=== PATIENT | female | born 1990 | race Asian ===

== ENCOUNTER 2022-09-25 17:39 | Emergency (ER) | payer MEDICAID, SELFPAY ==
[2022-09-25 17:47] VITALS: BP 114/78; PULSE 97; RESP 16; TEMP 36.7; O2SAT 96; BMI 28.8
--- NOTE | 2022-09-25 17:57 | CRLHL7_ITS ---
For Patients: As a result of the Cures Act, medical imaging exams and procedure reports are released immediately into your electronic medical record. You may view this report before your referring provider. If you have questions, please contact your health care provider. Indication: Trauma, fall. Technique: Three views of the sacrum and coccyx. Comparison: None Findings/Impression: No acute fracture or dislocation. Normal alignment of the pubic symphysis. No sacral alar fracture. Dictated by Brenton Campos MD @ 09/25/2022 7:24:40 PM (Electronically Signed)
--- NOTE | 2022-09-25 18:22 | ED.GENADULT ---
HPI - General Adult General Chief complaint: Fall/Minor Trauma Stated complaint: Fell, [place] a snap in the tailbone region Time Seen by Provider: 09/25/22 17:41 Source: patient Mode of arrival: ambulatory Limitations: no limitations History of Present Illness HPI narrative: 31-year-old female coming in today complaining of pain in her tailbone. Patient states that several hours ago she was going down the stairs when she slipped and fell flat on her bottom then falling backwards and hitting her head on the stairs to. She had immediate pain in her tailbone. And the pain is has gotten worse as the days gone on. Her head feels okay, no significant headache. She denies any nausea or vomiting. No blurry vision or changes in her hearing. No ringing in her ears. She did not lose consciousness. She did not bite her tongue. She denies any neurologic deficits. No slurred speech or confusion. She states that it hurts to go from a transition of sitting to standing. It hurts to stay seated. Once she is standing that is when the pain is at its best. Related Data Home Medications Medication Instructions Recorded Confirmed No Known Home Medications 09/25/22 09/25/22 Allergies Allergy/AdvReac Type Severity Reaction Status Date / Time kiwi Allergy Severe Anaphylaxis Verified 09/25/22 17:46 Penicillins Allergy Mild Rash Verified 09/25/22 17:46 Review of Systems Status of ROS: Reports: 10 or more systems reviewed and unremarkable except as noted in History and below [facility] Social History Smoking Status: Current every day smoker What tobacco products do you use: cigarettes Smoking packs per day: 0.1 Smoking cigarettes per day: 2.0 Do you use any of these nicotine containing products: None How often do you have a drink containing alcohol: never AUDIT-C Alcohol total score: 0 Non-prescribed substance use: denies use service: No Exam Narrative: Exam Narrative: Well-nourished well-developed patient in no acute distress. Alert and oriented. Answers questions appropriately. Mood and affect are appropriate. Thoughts are goal oriented and rational. No tangential or magical thinking noted. Patient speaks in full sentences without needing to catch her breath. GCS is 15. HEENT: Normocephalic atraumatic. Pupils are equally round reactive to light. Extraocular muscles are intact. Conjunctivae are moist without any icterus noted. Moist mucous membranes. Scalp is without ecchymosis or hematoma noted. No crepitus or areas of tenderness. Cardiovascular is regular rate and rhythm. Lungs are clear to auscultation bilaterally. No pain with deep inspiration. Back: Normal appearance. She has no tenderness to palpation over the cervical thoracic or lumbar spine. She has acute tenderness with palpation of the coccyx. There is no swelling or ecchymosis noted in the area. Const: Vital Signs, click to edit/add: Vital Signs - 24 hr 09/25/22 17:47 Temperature 98.1 F Pulse Rate [Left P ulse Oximeter] 97 Respiratory Rate 16 Blood Pressure [Ri ght Upper Arm] 114/78 Pulse Oximetry 96 Oxygen Delivery Me thod Room Air Course Course Hospital Course: Coccygeal x-ray was done-no acute fractures identified. Vital Signs Vital signs: Initial Vital Signs Temperature 98.1 F 09/25/22 17:47 Temperature Source Temporal Artery Scan 09/25/22 17:47 Pulse Rate 97 09/25/22 17:47 Pulse Rhythm 09/25/22 17:47 Respiratory Rate 16 09/25/22 17:47 Blood Pressure 114/78 09/25/22 17:47 Blood Pressure Mean 90 09/25/22 17:47 Blood Pressure Position Sitting 09/25/22 17:47 Pulse Oximetry 96 09/25/22 17:47 Oxygen Delivery Method 09/25/22 17:47 Vital Signs Temperature 98.1 F 09/25/22 17:47 Pulse Rate 97 09/25/22 17:47 Respiratory Rate 16 09/25/22 17:47 Blood Pressure 114/78 09/25/22 17:47 Pulse Oximetry 96 09/25/22 17:47 Oxygen Delivery Method 09/25/22 17:47 Temperature 98.1 F 09/25/22 17:47 Pulse Rate 97 09/25/22 17:47 Respiratory Rate 16 09/25/22 17:47 Blood Pressure 114/78 09/25/22 17:47 Pulse Oximetry 96 09/25/22 17:47 Oxygen Delivery Method 09/25/22 17:47 Medical Decision Making MDM Narrative Medical decision making narrative: 31-year-old female contusion of the tailbone. Patient will be discharged home with tramadol. We discussed other symptomatic treatments including a donut pillow and NSAIDs. Patient was agreeable had no other questions. Imaging Data XR Coccyx: Attestation: I have reviewed the pertinent imaging results. Radiologist's impression: Trauma, fall. Technique: Three views of the sacrum and coccyx. Comparison: None Findings/Impression: No acute fracture or dislocation. Normal alignment of the pubic symphysis. No sacral alar fracture. Discharge Plan Discharge Clinical Impression: Coccygeal contusion Patient Disposition: Home, Self-Care Condition: Stable Additional Instructions: Okay to use ibuprofen or Tylenol as needed. Recommend ibuprofen 600-800 mg 3 times a day with meals. Okay to use tramadol as needed for pain as well. Recommend getting a donut pillow to sit on for the next several weeks. Tramadol prescription sent to [facility]. Prescriptions: No Action No Known Home Medications Stand Alone Forms: [employer] Info Instructions
== END 2022-09-25 19:45 | disposition home or self-care (01) ==
PROVIDERS: Emergency Provider Family Medicine
DX: S30.0XXA Contusion of lower back and pelvis, initial encounter (principal); W10.8XXA Fall (on) (from) other stairs and steps, initial encounter
CPT/HCPCS: 72220; 99283; 99284

== ENCOUNTER 2023-05-04 15:39 | Emergency (ER) | payer MEDICAID, SELFPAY ==
[2023-05-04 15:45] VITALS: BP 115/77; PULSE 90; RESP 16; TEMP 36.6; O2SAT 100; BMI 29.8
--- NOTE | 2023-05-04 16:06 | CRLHL7_ITS ---
For Patients: As a result of the Century Cures Act, medical imaging exams and procedure reports are released immediately into your electronic medical record. You may view this report before your referring provider. If you have questions, please contact your health care provider. INDICATION: Left flank pain COMPARISON: None. TECHNIQUE: CT of the abdomen and pelvis without intravenous contrast. Multiplanar axial, coronal, and sagittal reformats were reconstructed. Intravenous contrast: None. Oral contrast was not administered. FINDINGS: Lung bases: Normal. Liver: Normal size and non-contrast attenuation. Gallbladder and biliary tree: Normal gallbladder. No biliary duct dilation. Pancreas: Normal. Spleen: Normal size. Adrenal glands: Normal. No nodules. Kidneys and bladder: Normal size and position. No obvious cyst or mass. No calculi. No urinary tract dilation. The urinary bladder is normal. GI: Descending colon diverticulitis. Adjacent inflammatory change without perforation, phlegmon, or abscess. Very few diverticular burden. No dilated segments. No other abnormal bowel wall thickening. Small stool burden. The appendix is normal. Vessels: Normal caliber abdominal aorta with no calcified atherosclerotic plaques. Peritoneum: No free fluid. Lymph nodes: No adenopathy. Pelvis: Physiologic appearance of the reproductive organs. Bones: No fractures. No focal bone lesions. Normal for age. IMPRESSION: Acute uncomplicated diverticulitis. Please note that all CT scans at this facility use dose modulation, iterative reconstruction, and/or weight-based dosing when appropriate to reduce radiation dose to as low as reasonably achievable. Dictated by Ashlyn Nelson MD @ 05/04/2023 4:57:06 PM (Electronically Signed)
[2023-05-04 16:08] LABS: Appearance Urine Clear (Clear); Bilirubin Urine Negative (Negative); Blood Urine Negative (Negative); Color Urine Yellow (Yellow); Glucose Urine Negative (Negative); Ketones Urine Negative (Negative); Leukocyte Esterase Urine Negative (Negative); Nitrite Urine Negative (Negative); Protein Urine Negative (Negative); Urobilinogen Urine 0.2 (0.2-1.0)
--- NOTE | 2023-05-04 16:11 | ED.GENADULT ---
HPI - General Adult General Time Seen by Provider: 16:11 Date Seen: 05/04/23 Chief complaint: Abdominal Pain Stated complaint: stomach pain left side, rib pain Time Seen by Provider: 05/04/23 15:46 History of Present Illness HPI narrative: This is a pleasant 32-year-old female with a past medical history including exercise-induced asthma (rarely needs inhaler), tobacco use, who presents to the ER today with left upper quadrant/left-sided abdominal pain. She has been sick for 3 days. She developed symptoms of pain the common BD g gradually throughout the day on either Wednesday or Wednesday. Along with those symptoms, that today she developed diarrhea. She had multiple episodes of watery but nonbloody and non mucousy diarrhea. Her left-sided pain became more intense. Her diarrhea continued for a day or 2. She was nauseous but not vomiting. Today her stools are still soft but seemed to be normalizing. However son Wednesday she had on ongoing left-sided pain. She feels likes not really getting worse but is not getting better. She does not really know what triggered it. No clear exacerbating or alleviating factor. It does not really hurt to move or breathe. The pain is not radiate to her flank. No associated urinary symptoms. No pain rating down her leg. No right-sided abdominal pain. She did have a low-grade fever last night. She felt a bit dizzy yesterday when she was at the park with her children. Otherwise no syncope. No chest pain or rib pain. No history of DVT/PE. No swelling in her legs. She does not take any prescription medications Related Data Previous Rx's Medication Instructions Recorded ciprofloxacin HCl 500 mg tablet 500 mg PO BID 7 days #14 tabs 05/04/23 (Cipro) metronidazole 500 mg tablet 500 mg PO TID 7 days #21 tabs 05/04/23 Allergies Allergy/AdvReac Type Severity Reaction Status Date / Time kiwi Allergy Severe Anaphylaxis Verified 09/25/22 17:46 Penicillins Allergy Mild Rash Verified 09/25/22 17:46 lactose AdvReac Verified 05/04/23 15:48 PFSH PFS Social History Smoking Status: Current every day smoker What tobacco products do you use: cigarettes Smoking packs per day: 0.1 Smoking cigarettes per day: 2.0 Do you use any of these nicotine containing products: None How often do you have a drink containing alcohol: never AUDIT-C Alcohol total score: 0 Non-prescribed substance use: denies use service: No Exam Narrative: Exam Narrative: Constitutional: Appears well-developed and well-nourished. Alert. Conversant. Non toxic. HENT: Head: Atraumatic. Nose: Nose normal. Mouth/Throat: Oral mucosa is clear and moist. no trismus. Pharynx normal. Tonsils symmetric. No tonsillar enlargement, erythema, or exudate. Eyes: Conjunctivae normal. EOM normal. Pupils equal, round, and reactive to light. No scleral icterus. Neck: Normal range of motion. Neck supple. No tracheal deviation present. Cardiovascular: Normal rate, regular rhythm. No gallop. No friction rub. No murmur heard. Symmetric radial artery pulses Pulmonary/Chest: Effort normal. No stridor. No respiratory distress. No wheezes. No rales. No rhonchi . No ribcage tenderness. No shingles. No bruising. Abdominal: Soft. Bowel sounds normal. No distension. No mass. Left upper quadrant and>> left lower quadrant tenderness. No posterior CVA tenderness. No rebound. No guarding. Musculoskeletal: RUE: Normal range of motion. No tenderness. No deformity LUE: Normal range of motion. No tenderness. No deformity RLE: Normal range of motion. No edema. No tenderness. No deformity LLE: Normal range of motion. No edema. No tenderness. No deformity Neurological: Alert and oriented to person, place, and time. Normal strength. CN II-VII intact. No sensory deficit. GCS eye subscore is 4. GCS verbal subscore is 5. GCS motor subscore is 6. Normal coordination Skin: Skin is warm and dry. No rash noted. No pallor. Normal capillary refill. Psychiatric: Normal mood. Normal affect. Const: Vital Signs, click to edit/add: Vital Signs - 24 hr 05/04/23 15:45 Temperature 97.9 F Pulse Rate [Pulse Oximeter] 90 Respiratory Rate 16 Blood Pressure [Ri ght Upper Arm] 115/77 Pulse Oximetry 100 Oxygen Delivery Me thod Room Air Course Reevaluation(s) Reevaluation #1: Recheck-sitting up in bed. Feels comfortable going home. Had a detailed discussion about her labs and CT findings. Vital Signs Vital signs: Initial Vital Signs Temperature 97.9 F 05/04/23 15:45 Temperature Source Temporal Artery Scan 05/04/23 15:45 Pulse Rate 90 05/04/23 15:45 Respiratory Rate 16 05/04/23 15:45 Blood Pressure 115/77 05/04/23 15:45 Blood Pressure Mean 89 05/04/23 15:45 Blood Pressure Position Sitting 05/04/23 15:45 Pulse Oximetry 100 05/04/23 15:45 Oxygen Delivery Method Room Air 05/04/23 15:45 Vital Signs Temperature 97.9 F 05/04/23 15:45 Pulse Rate 90 05/04/23 15:45 Respiratory Rate 16 05/04/23 15:45 Blood Pressure 115/77 05/04/23 15:45 Pulse Oximetry 100 05/04/23 15:45 Oxygen Delivery Method Room Air 05/04/23 15:45 Temperature 97.9 F 05/04/23 15:45 Pulse Rate 90 05/04/23 15:45 Respiratory Rate 16 05/04/23 15:45 Blood Pressure 115/77 05/04/23 15:45 Pulse Oximetry 100 05/04/23 15:45 Oxygen Delivery Method Room Air 05/04/23 15:45 Medical Decision Making MDM Narrative Medical decision making narrative: Presented to the Emergency Department with left-sided and left upper quadrant abdominal pain. The differential diagnosis of abdominal pain includes: Appendicitis, Bowel Obstruction, Ulcer, Ischemia, Cholecystitis, Diverticulitis, Pancreatitis, UTI, kidney stone, Enteritis/Colitis, amongst many other etiologies. Not . Urinalysis normal. CT scan shows evidence for acute uncomplicated diverticulitis of affecting her descending colon. No evidence for perforation, abscess. The exact etiology of the abdominal pain is not clear at this time. No life threatening cause or need for emergent surgery or hospital admission is detected today. Discussed option managing her uncomplicated diverticulitis. We discussed supportive care without antibiotics verses prescribing antibiotics for this. Discussed recent recommendations for non antibiotic management and risks of antibiotics such as diarrhea. Discuss risk of potential development of surgical pathology. After detailed discussion, using shared decision-making, we decided to try to treat her supportively for now. She feels comfortable managing her pain with Tylenol/ibuprofen at home so will hold off on opiates. Will try to manage without antibiotics, as per current guidelines. I will give her prescription for Cipro/Flagyl that she can start if she is not improving after 48 hours. She has penicillin allergy which contraindicate Augmentin. Reviewed potential for worsening of her condition and precautions for immediate return to the ER. Also she will follow up for recheck if she is not completely improved within 4 days. Lab Data Labs: Lab Results 05/04/23 05/04/23 Range/Units 15:47 16:16 WBC 9.39 (4.50-11.00) K/uL RBC 4.25 (4.00-5.20) m/uL Hgb 13.0 (12.0-16.0) gm/dL Hct 39.8 (33.0-51.0) % MCV 94 (80-100) fL MCH 31 (26-34) pg MCHC 33 (32-36) gm/dL RDW Coeff of Jody 11.9 (11.5-15.5) % Plt Count 219 (140-440) K/uL Neut % (Auto) 68.1 (42.0-72.0) % Lymph % (Auto) 19.7 L (20-44) % [place] % (Auto) 7.9 (0.0-11.0) % Eos % (Auto) 3.6 (0.0-7.0) % Baso % (Auto) 0.5 (0.0-3.0) % Neut # (Auto) 6.39 (1.7-7.0) K/uL Lymph # (Auto) 1.80 (0.90-2.90) K/uL [place] # (Auto) 0.70 (0.00-0.90) K/UL Eos # (Auto) 0.34 (0.00-0.50) K/uL Baso # (Auto) 0.05 (0.00-0.30) K/uL Abs Immat Gran (auto) 0.02 (0.00-0.30) K/uL Imm/Tot Granulo (auto) 0.2 % Sodium 138 (135-149) mmol/L Potassium 3.7 (3.6-5.1) mmol/L Chloride 104 (96-114) mmol/L Carbon Dioxide 26 (20-32) mmol/L Anion Gap 8 (7-15) mEq/L BUN 11 (5-24) mg/dL Creatinine 0.6 (0.5-1.5) mg/dL Estimated Creat Clear 118.88 Estimated GFR 121 ml/min Glucose 83 (60-115) mg/dL Lactate 0.6 (0.5-1.9) mmol/L Calcium 8.6 (8.4-10.6) mg/dL Total Bilirubin 0.6 (0.1-1.5) mg/dL AST 24 (12-35) U/L ALT 20 (4-35) U/L Alkaline Phosphatase 65 (40-150) U/L Total Protein 7.3 (6.0-8.3) g/dL Albumin 4.1 (3.3-5.0) g/dL Lipase 114 (23-300) U/L Urine Color Yellow (Yellow) Urine Appearance Clear (Clear) Urine pH 6.0 (5.0-8.5) Ur Specific [place] 1.010 (1.000-1.030) Urine Protein Negative (Negative) Urine Glucose (UA) Negative (Negative) Urine Ketones Negative (Negative) Urine Blood Negative (Negative) Urine Nitrite Negative (Negative) Urine Bilirubin Negative (Negative) Urine Urobilinogen 0.2 (0.2-1.0) Ur Leukocyte Esterase Negative (Negative) Urine RBC 0-2 (0-2) Urine WBC 0-2 (0-5) Ur Squamous Epith Cells None (None-Few) Urine Bacteria None (None) Urine HCG, Qual Negative (Negative) Imaging Data CT scan - abdomen: Attestation: I have reviewed the pertinent imaging results. Radiologist's impression: IMPRESSION: Acute uncomplicated diverticulitis. Discharge Plan Discharge Clinical Impression: Diverticulitis Patient Disposition: Home, Self-Care Condition: Stable Instructions: Diverticulitis (DC) Additional Instructions: As we discussed, please come back to the ER right away if you have any worsening symptoms-such as worsening pain, developing fever, nausea vomiting, bloody stools or worsening diarrhea, weakness. Use Tylenol or ibuprofen for pain. Drink plenty of fluids and try to eat a regular healthy diet. Some cases of diverticulitis, especially those in young healthy people, will resolve without specific treatment. Current guidelines say that antibiotics are not always necessary for diverticulitis. However if you are not getting better within 2 days, please start on your antibiotics. Please start your antibiotics if you are not improving within 48 hours. After that, if you have not completely improved within 2 days of starting the antibiotics, come back to the ER or see your doctor for a recheck. Even if you get better, please call your regular doctor or the [facility] to arrange a recheck appointment for 1-2 weeks from now. Prescriptions: New ciprofloxacin HCl [Cipro] 500 mg tablet 500 mg PO BID 7 Days Qty: 14 0RF metronidazole 500 mg tablet 500 mg PO TID 7 Days Qty: 21 0RF Follow Up/Referrals: Provider,Not a Local [Referring] - Stand Alone Forms: [employer] Info Instructions
[2023-05-04 16:21] LABS: Lactate* 0.6 mmol/L (0.5-1.9)
[2023-05-04 16:29] LABS: RBC Urine 0-2 (0-2); WBC Urine 0-2 (0-5)
[2023-05-04 16:39] LABS: Albumin* 4.1 g/dL (3.3-5.0); Chloride* 104 mmol/L (96-114); Sodium* 138 mmol/L (135-149)
[2023-05-04 16:40] LABS: Potassium* 3.7 mmol/L (3.6-5.1)
[2023-05-04 16:42] LABS: Alanine Aminotransferase* 20 U/L (4-35); Alkaline Phosphatase* 65 U/L (40-150); Anion Gap 8 mEq/L (7-15); Aspartate Amino Transferase* 24 U/L (12-35); Bilirubin Total* 0.6 mg/dL (0.1-1.5); Blood Urea Nitrogen* 11 mg/dL (5-24); Carbon Dioxide* 26 mmol/L (20-32); Creatinine* 0.6 mg/dL (0.5-1.5); Est. Creatinine Clearance* 118.88; Estimated Glomerular Filt Rate 121 ml/min; Glucose* 83 mg/dL (60-115); Lipase* 114 U/L (23-300); Total Protein* 7.3 g/dL (6.0-8.3)
[2023-05-04 16:43] LABS: Calcium* 8.6 mg/dL (8.4-10.6)
[2023-05-04 16:53] LABS: Ur HCG Qualitative* Negative (Negative)
[2023-05-04 17:21] LABS: Basophils Absolute Auto 0.05 K/uL (0.00-0.30); Basophils Percent Auto 0.5 % (0.0-3.0); Eosinophils Absolute Auto 0.34 K/uL (0.00-0.50); Eosinophils Percent Auto 3.6 % (0.0-7.0); Hematocrit 39.8 % (33.0-51.0); Immature Granulocytes Abs Auto 0.02 K/uL (0.00-0.30); Immature Granulocytes Pct Auto 0.2 %; Lymphocytes Percent Auto 19.7 % (20-44); Mean Corpuscular HGB Conc 33 gm/dL (32-36); Mean Corpuscular Hemoglobin 31 pg (26-34); Mean Corpuscular Volume 94 fL (80-100); Monocytes Percent Auto 7.9 % (0.0-11.0); Neutrophils Absolute Auto 6.39 K/uL (1.7-7.0); Neutrophils Percent Auto 68.1 % (42.0-72.0); Platelet Count* 219 K/uL (140-440); RDW Coefficient of Variation % 11.9 % (11.5-15.5); Red Blood Count 4.25 m/uL (4.00-5.20); White Blood Count* 9.39 K/uL (4.50-11.00)
[2023-05-04 17:22] LABS: Slide Review Reflex No
[2023-05-04 18:04] VITALS: BP 122/81; PULSE 79; RESP 16; TEMP 36.8
== END 2023-05-04 18:04 | disposition home or self-care (01) ==
PROVIDERS: Emergency Provider Emergency Medicine; PCP Family Medicine
DX: K57.92 Diverticulitis of intestine, part unspecified, without perforation or abscess without bleeding (principal)
CPT/HCPCS: 36415; 74176; 80053; 81001; 81025; 83605; 83690; 85025; 99283; 99284

== ENCOUNTER 2023-05-27 20:16 | Emergency (ER) | payer MEDICAID, SELFPAY ==
[2023-05-27 20:20] VITALS: BP 101/65; PULSE 82; RESP 18; TEMP 36.8; O2SAT 99; BMI 29.8
--- NOTE | 2023-05-27 20:43 | ED.GENADULT ---
HPI - General Adult General Date Seen: 05/27/23 Chief complaint: Skin/Abscess/Foreign Body Stated complaint: bite on arm Time Seen by Provider: 05/27/23 20:33 Source: patient Mode of arrival: ambulatory Limitations: no limitations History of Present Illness HPI narrative: Patient is a 32-year-old woman who comes in with some swelling and a pustule on her left arm. She says about a week ago she thought she had a couple of bites there. She squeezed the area and now has some swelling and pain and a larger area. There is a small pustule which is not draining. She also notes that for quite a while she has had recurrent boils in her groin area, she has never been seen for it but wonders if it is related. Related Data Home Medications Medication Instructions Recorded Confirmed vit no.[id number] .ROUTE 05/27/23 Allergies Allergy/AdvReac Type Severity Reaction Status Date / Time kiwi Allergy Severe Anaphylaxis Verified 05/27/23 20:27 Penicillins Allergy Mild Rash Verified 05/27/23 20:27 Sulfa (Sulfonamide Allergy Unknown Verified 05/27/23 20:27 Antibiotics) lactose AdvReac Verified 05/27/23 20:27 Review of Systems Status of ROS: Reports: 6 or more systems reviewed and unremarkable except as noted in History and below [facility] Social History Smoking Status: Current every day smoker What tobacco products do you use: cigarettes Smoking packs per day: 0.1 Smoking cigarettes per day: 2.0 Years smoked: 15 Smoking pack-years: 1.50 Do you use any of these nicotine containing products: None Second hand tobacco smoke exposure: No How often do you have a drink containing alcohol: never AUDIT-C Alcohol total score: 0 Non-prescribed substance use: denies use service: No Exam Narrative: Exam Narrative: Vital signs reviewed In general, an alert, nontoxic woman. Skin: On the left forearm she has a tiny pustule, there is a small area of induration perhaps a cm to a cm and half but I do not feel anything fluctuant. There is mild erythema and swelling to about 6 cm surrounding this area. This is tender but also not fluctuant. No lymphangitic streaking. In the groin, she has several small boils, none that appear to require drainage. Const: Vital Signs, click to edit/add: Vital Signs - 24 hr 05/27/23 20:20 Temperature 98.2 F Pulse Rate [Pulse Oximeter] 82 Respiratory Rate 18 Blood Pressure [Ri ght Upper Arm] 101/65 Pulse Oximetry 99 Oxygen Delivery Me thod Room Air Documenting provider has reviewed patient's vital signs: yes Course Course ED Course: At this time I do not think that the arm needs incision and drainage, I do not feel anything suggestive of abscess. She does appear to have a cellulitis which I will treat with antibiotics, discussed with her that if she has worsening rather than improving she should be seen again to make sure she has not developed an abscess. With regard to the groin, this looks consistent likely with hidradenitis suppurativa. I have given her some information on this. Discuss further with primary care or Dermatology. Return for worsening swelling or pain. Vital Signs Vital signs: Initial Vital Signs Temperature 98.2 F 05/27/23 20:20 Temperature Source Temporal Artery Scan 05/27/23 20:20 Pulse Rate 82 05/27/23 20:20 Respiratory Rate 18 05/27/23 20:20 Blood Pressure 101/65 05/27/23 20:20 Blood Pressure Mean 77 05/27/23 20:20 Blood Pressure Position Sitting 05/27/23 20:20 Pulse Oximetry 99 05/27/23 20:20 Oxygen Delivery Method Room Air 05/27/23 20:20 Vital Signs Temperature 98.2 F 05/27/23 20:20 Pulse Rate 82 05/27/23 20:20 Respiratory Rate 18 05/27/23 20:20 Blood Pressure 101/65 05/27/23 20:20 Pulse Oximetry 99 05/27/23 20:20 Oxygen Delivery Method Room Air 05/27/23 20:20 Temperature 98.2 F 05/27/23 20:20 Pulse Rate 82 05/27/23 20:20 Respiratory Rate 18 05/27/23 20:20 Blood Pressure 101/65 05/27/23 20:20 Pulse Oximetry 99 05/27/23 20:20 Oxygen Delivery Method Room Air 05/27/23 20:20 Discharge Plan Discharge Clinical Impression: Cellulitis Patient Disposition: Home, Self-Care Condition: Stable Instructions: Cellulitis (ED), Hidradenitis Suppurativa (ED) Additional Instructions: Antibiotic as prescribed. Warm compresses. I would expect this to gradually improve over the next 48 hours. If it is getting worse you should be seen again to recheck and make sure there is nothing that needs to be drained. Prescriptions: No Action vit no.[id number] [Classic ] .ROUTE Follow Up/Referrals: Ana Guzman DO [Primary Care Provider] - Stand Alone Forms: [employer] Info Instructions
== END 2023-05-27 21:02 | disposition home or self-care (01) ==
LOC: ED 20:50
PROVIDERS: Emergency Provider Emergency Medicine; PCP Family Medicine
DX: L03.114 Cellulitis of left upper limb (principal)
CPT/HCPCS: 99283

== ENCOUNTER 2023-06-11 09:17 | Outpatient (CLI) | payer MEDICAID, SELFPAY ==
--- NOTE | 2023-06-11 09:15 | CRLHL7_ITS ---
For Patients: As a result of the Century Cures Act, medical imaging exams and procedure reports are released immediately into your electronic medical record. You may view this report before your referring provider. If you have questions, please contact your health care provider. Indication: DESIRE FOR Technique: Hysterosalpingogram. Fluoroscopic time 42 seconds. IMPRESSION: Normal patency of the fallopian tubes with spillage into the peritoneal cavity. No filling defect in the endometrial canal. Normal exam. Dictated by Ishaan Rosario MD @ 06/11/2023 10:49:29 AM (Electronically Signed)
--- NOTE | 2023-06-11 09:58 | P.GYNPRC_ITS ---
Procedure Note Date of procedure: 06/11/23 Pre-op diagnosis: Desire for Post-op diagnosis: same Procedure: Hysterosalpingogram Anesthesia: none Complications: None Surgeon: Taran Blair MD Estimated blood loss (mL): 5 Pathology: none sent Condition: stable Disposition: other (Discharge) Findings: Speculum exam: cervix w/o gross lesions or abnormal discharge. HSG: Normal uterine cavity, bilateral fallopian tubes and bilateral spillage of contrast. Procedure Description: PROCEDURE: After obtaining verbal consent, the patient was placed in the dorsal lithotomy position on the x-ray table. An open-sided bivalve speculum was introduced into the vagina and the cervix easily visualized. The cervix and vagina were then prepped with Betadine. The anterior lip of the cervix was grasped with a single-tooth tenaculum for traction. A balloon tipped double- lumen catheter was then gently inserted through the cervical opening into the uterine cavity to the level of the fundus. The balloon was insufflated with 3 mL of air. The tenaculum and speculum were removed. The patient was repositioned in the supine position, covered, and the radiologist was called to the room. A hysterosalpingogram was then performed, with initial injection of contrast patient moved and catheter came out. A second attempt was made in the same manner as previously described and HSG was completed. A total of 15 cc of Optiray 300 water soluble contrast dye was injected through the double-lumen catheter under moderate pressure. There was immediate fill of the uterine cavity to the cornua and immediate fill of both fallopian tubes and free spillage of dye on both sides. The balloon was deflated. The catheter was removed. The patient tolerated the procedure well, though she did have moderate cramping discomfort during and just after the procedure. She was discharged to home in stable condition and to follow [facility] as [facility].
== END 2023-06-11 09:18 | disposition home or self-care (01) ==
LOC: RAD 09:18
PROVIDERS: PCP Family Medicine; Visit Provider Family Medicine
DX: Z31.9 Encounter for procreative management, unspecified (principal)
CPT/HCPCS: 58340; 74740; A4649; Q9967

== ENCOUNTER 2024-05-31 08:45 | Outpatient (RCR) | payer OTHER, MEDICAID, SELFPAY | END 2024-08-22 13:47 | disposition home or self-care (01) | PROVIDERS: PCP Family Medicine; Visit Provider Family Medicine | DX: N39.498 Other specified urinary incontinence (principal); N32.81 Overactive bladder; Z51.89 Encounter for other specified aftercare; M54.9 Dorsalgia, unspecified | CPT/HCPCS: 97110; 97140; 97161 ==

== ENCOUNTER 2024-05-31 09:34 | Outpatient (RCR) | payer OTHER, SELFPAY | END 2024-09-06 13:49 | disposition home or self-care (01) | PROVIDERS: PCP Family Medicine; Visit Provider Family Medicine | DX: N39.498 Other specified urinary incontinence (principal); N39.41 Urge incontinence; R35.0 Frequency of micturition; N94.6 Dysmenorrhea, unspecified; N32.81 Overactive bladder; Z51.89 Encounter for other specified aftercare | CPT/HCPCS: 97161 ==